=== PATIENT | female | born 1990 | race Caucasian/White ===

== ENCOUNTER 2017-01-19 12:42 | Emergency (ER) | payer SELFPAY ==
[~2017-01-19] VITALS: Ht 165.1 cm; Wt 68.2 kg
[~2017-01-19 12:42] MED LIST: ACETAMINOPHEN W1 TA6 PO; AMOXICILLIN 50500 MG PO; AMOXICILLIN 8751 TAB PO; AUGMENTIN 875 M1 TAB PO; BACTRIM DS 8001 TAB PO; BACTROBAN22 TP; BCP TD; BIRTH CONTROL PILLS; CATAPRES 0.1MG0.1 MG PO; CATAPRES0.1 MG PO; CEPHALEXIN500 M1 PO; CIPRO 500MG TA500 MG PO; CIPRODEX OT; CLEOCIN HC150 MG/CAP PO; CLINDAMYCIN150 MG PO; CLINDAMYCIN300 MG PO; DEPO-PROVER400 MG/ML IM; DIFLUCAN150 MG PO; DOXYCYCLINE 10100 MG PO; FLAGYL500 MG PO; FLEXERIL 1010 MG/TAB PO; FLEXERIL10 MG PO; FLINTSTONES1 CTB PO; IBU-6600 MG PO; KETOROLAC10 MG PO; LORTAB 5/500 501 TAB PO; MACROBID 1100 MG/CAP PO; METHADONE H10 MG/TAB PO; METHADOSE40 MG PO; MOTRIN 400400 MG/TAB PO; MULTI VITAMINS1 TAB PO; NO HOME MEDICATIONS; NORCO 325 MG-7.1 TAB PO; PEN-VEE K500 MG PO; PENICILLIN V500 MG PO; PERCOCET 325 MG1 TA2 PO; PERCOCET 5/321 UDTAB PO; PHENERGAN25 M1 PO; PREDNISONE10 MG PO; PREDNISONE20 MG PO; PRENATAL VITAMI1 TA5 PO; PRENATAL1 TA1; PRENATAL1 TA7 PO; PYRIDIUM 100MG100 MG PO; SENOKOT S 50 MG1 TAB PO; TRAMADOL50 MG PO; TYLENOL 500MG500 MG PO; ULTRAM 50MG TAB50 MG PO; ULTRAM50 MG PO; VICODIN 5/5001 UDTAB PO
[2017-01-19 12:45] VITALS: BP 102/59; PULSE 89; TEMP 97.9
[2017-01-19] MEDS ORDERED: PERCOCET 325 MG1 TA2 PO (13:30)
[2017-01-19] MEDS ORDERED: AMOXICILLIN 50500 MG PO (13:30)
== END 2017-01-19 13:49 | disposition home or self-care (01) ==
LOC: COL.ER 12:42
DX: K08.89 Other specified disorders of teeth and supporting structures (principal); F17.210 Nicotine dependence, cigarettes, uncomplicated; K06.9 Disorder of gingiva and edentulous alveolar ridge, unspecified

== ENCOUNTER → 2017-10-18 | Outpatient (CLI) | payer SELFPAY ==
[2017-10-18 17:52] LABS: HEMATOCRIT 38.2 % (37.0-47.0); HEMOGLOBIN 12.5 g/dl (12.5-16.0); MEAN CELL VOLUME 91 fl (80.0-100.0); MEAN CORPUSCULAR HEMOGLOBIN 30 pg (27.0-31.0); MEAN CORPUSCULAR HGB CONC 33 g/dl (33.0-37.0); MEAN PLATELET VOLUME 11.1 fl (7.4-10.4); PLATELET COUNT 187 K/mm3 (130-400); RED BLOOD COUNT 4.22 M/mm3 (4.10-5.30); REDCELL DISTRIBUTION WIDTH-CV 12.4 % (11.5-14.5)
[2017-10-18 18:04] LABS: ALBUMIN 4.5 gm/dL (3.5-5.0); BILIRUBIN,TOTAL 0.3 mg/dL (0.0-1.0); CREATININE, serum 0.7 mg/dL (0.52-1.25); POTASSIUM 3.7 mmol/L (3.4-5.0); TOTAL PROTEIN 7.5 gm/dL (6.4-8.2)
[2017-10-18 18:46] LABS: HIV 1/2 Antibodies Non-Reactive; HIV-1p24 Antigen Non-Reactive
[2017-10-19 18:00] LABS: HEPATITIS C VIRUS ANTIBODY Negative (())
== END ==
LOC: COL.LAB 17:28
DX: R20.2 Paresthesia of skin (principal); F19.11 Other psychoactive substance abuse, in remission

== ENCOUNTER 2018-04-07 21:14 | Emergency (ER) | payer SELFPAY ==
[~2018-04-07] VITALS: Ht 162.6 cm; Wt 63.6 kg
[2018-04-07 21:20] VITALS: TEMP 97.9
[2018-04-07] MEDS ORDERED: SUBOXONE 8 MG-21 TAB SL (21:31)
[2018-04-07 21:51] LABS: COLLECTION METHOD CLEAN CATCH
[2018-04-07] MEDS ORDERED: AMOXICILLIN 8751 TAB PO (21:54)
[2018-04-07 21:57] LABS: MUCOUS Present /lpf; PH 7 (5-8); SQUAMOUS EPITHELIAL 0-2 /hpf; URINE APPEARANCE Clear; URINE BACTERIA None Seen /hpf; URINE BILIRUBIN Negative (NEGATIVE); URINE BLOOD Negative (NEGATIVE); URINE COLOR Straw; URINE GLUCOSE Negative (NEGATIVE); URINE KETONE Negative (NEGATIVE); URINE LEUKOCYTE ESTERASE Negative (NEGATIVE); URINE NITRATE Negative (NEGATIVE); URINE PROTEIN(semi-quant) Negative (NEGATIVE); URINE RBC 0-2 /hpf; URINE UROBILINOGEN Negative (NEGATIVE)
[2018-04-07 22:00] VITALS: BP 111/65
[2018-04-07 22:49] VITALS: PULSE 76
== END 2018-04-07 22:49 | disposition home or self-care (01) ==
LOC: COL.ER 21:14
PROVIDERS: Emergency Medicine
DX: R00.2 Palpitations (principal)

== ENCOUNTER → 2018-10-16 | Emergency (ER) | payer SELFPAY ==
[~2018-10-16] VITALS: Ht 162.6 cm; Wt 61.4 kg
[~2018-10-16] MED LIST changes: +SUBOXONE 8 MG-21 TAB SL
[2018-10-16 20:09] VITALS: BP 144/57; PULSE 70; TEMP 98.1
== END ==
LOC: COL.ER 20:09
DX: H60.91 Unspecified otitis externa, right ear (principal); H83.01 Labyrinthitis, right ear; F17.210 Nicotine dependence, cigarettes, uncomplicated

== ENCOUNTER 2019-05-12 14:10 | Emergency (ER) | payer SELFPAY ==
[~2019-05-12] VITALS: Ht 162.6 cm; Wt 61.4 kg
[2019-05-12 14:17] VITALS: BP 123/70
[2019-05-12] MEDS ORDERED: AMOXICILLIN 8751 TAB PO (15:36)
[2019-05-12 15:48] VITALS: PULSE 60; TEMP 98.2
== END 2019-05-12 15:50 | disposition home or self-care (01) ==
LOC: COL.ER 14:10
DX: K02.9 Dental caries, unspecified (principal); F17.210 Nicotine dependence, cigarettes, uncomplicated

== ENCOUNTER 2019-05-16 23:13 | Emergency (ER) | payer SELFPAY ==
[~2019-05-16] VITALS: Ht 162.6 cm; Wt 61.4 kg
[2019-05-16 23:29] VITALS: BP 123/74; TEMP 98.4
[2019-05-17 00:55] VITALS: PULSE 66
== END 2019-05-17 00:55 | disposition home or self-care (01) ==
LOC: COL.ER 23:13
DX: S90.862A Insect bite (nonvenomous), left foot, initial encounter (principal); W57.XXXA Bitten or stung by nonvenomous insect and other nonvenomous arthropods, initial encounter

== ENCOUNTER 2019-09-24 21:42 | Emergency (ER) | payer SELFPAY ==
[~2019-09-24] VITALS: Ht 162.6 cm; Wt 61.4 kg
[2019-09-24 21:54] VITALS: BP 122/78; TEMP 97.5
[2019-09-24] MEDS ORDERED: ZOFRAN 4MG T4 MG/TAB PO (22:15)
[2019-09-24] MEDS ORDERED: AMOXICILLIN 50500 MG PO (22:15)
[2019-09-24] MEDS ORDERED: ULTRAM 50MG TAB50 MG PO (22:15)
[2019-09-24 22:35] VITALS: PULSE 81
== END 2019-09-24 22:36 | disposition home or self-care (01) ==
LOC: COL.ER 21:42
DX: K02.9 Dental caries, unspecified (principal); F17.210 Nicotine dependence, cigarettes, uncomplicated